=== PATIENT | female | born 1965 | race Caucasian/White ===

== ENCOUNTER 2016-04-13 03:17 | Emergency (ER) | payer SELFPAY ==
[2016-04-13] MEDS ORDERED: ONDANSETRON 4 MG TAB.RAPDIS PO ONE (07:30)
[2016-04-13] MEDS ORDERED: PROCHLORPERAZINE MALEATE 5 MG TABLET PO ONE (07:30)
[2016-04-13] MEDS ORDERED: PROMETHAZINE HCL 25 MG TABLET PO ONE (07:51)
[2016-04-13] MEDS ORDERED: LIDOCAINE 5% (700 MG) TRANSDERMAL ADH..PATCH TP ONE (07:54)
--- NOTE | 2016-04-13 08:16 | ER Document Report ---
ED General - General Chief Complaint: Fall Stated Complaint: FALL,HEAD INJURY TRAVEL OUTSIDE OF THE [place] IN LAST 30 DAYS: No - HPI Patient complains to provider of: fall Notes: Patient was drinking last night states that she was trying put on her shoes and she had a fall hitting her head complaining of head pain and neck pain. Upon my evaluation patient sleeping with her significant other in the same stretcher with her. Patient states fell backwards no loss of consciousness but complains of head pain and neck pain.. Patient is acutely intoxicated. Patient is sitting in a c-collar. Otherwise has no other complaints. - Related Data Allergies/Adverse Reactions: Penicillins Allergy (Verified 12/08/15 13:58) Past Medical History - Social History Smoking Status: Unknown if Ever Smoked Family History: Reviewed & Not Pertinent Past Surgical History: Reports: Hx Hysterectomy Review of Systems - Review of Systems Constitutional: Other - Head pain and neck pain EENT: No symptoms reported Cardiovascular: No symptoms reported Respiratory: No symptoms reported Gastrointestinal: No symptoms reported Genitourinary: No symptoms reported Female Genitourinary: No symptoms reported Musculoskeletal: No symptoms reported Skin: No symptoms reported Hematologic/Lymphatic: No symptoms reported Neurological/Psychological: No symptoms reported -: Yes All other systems reviewed and negative Physical Exam - Vital signs Interpretation: Normal - General General appearance: Appears well, Alert - HEENT Head: Normocephalic, Atraumatic Eyes: Normal Conjunctiva: Normal Cornea: Normal Extraocular movements intact: Yes Pupils: PERRL Neck: Other - C-spine precautions c-collar in place - Respiratory Respiratory status: No respiratory distress Chest status: Nontender Breath sounds: Normal Chest palpation: Normal - Cardiovascular Rhythm: Regular Heart sounds: Normal auscultation Murmur: No - Abdominal Inspection: Normal Distension: No distension Bowel sounds: Normal Tenderness: Nontender Organomegaly: No organomegaly - Back Back: Normal, Nontender - Extremities General upper extremity: Normal inspection, Nontender, Normal color, Normal ROM , Normal temperature General lower extremity: Normal inspection, Nontender, Normal color, Normal ROM , Normal temperature, Normal weight bearing. No: Julita's sign - Neurological Neuro grossly intact: Yes Cognition: Normal Orientation: AAOx4 [place] Coma Scale Eye Opening: Spontaneous Graham Coma Scale Verbal: Oriented Graham Coma Scale Motor: Obeys Commands Graham Coma Scale Total: 15 Speech: Normal Motor strength normal: LUE, RUE, LLE, RLE Sensory: Normal - Psychological Associated symptoms: Normal affect, Normal mood - Skin Skin Temperature: Warm Skin Moisture: Dry Skin Color: Normal Course - Re-evaluation Re-evalutation: 04/13/16 08:41 CT scans were performed These were negative. Patient will be discharged home Discharge - Discharge Clinical Impression: Neck pain Head pain Qualifiers: Headache type: unspecified Headache chronicity pattern: unspecified pattern Intractability: not intractable Qualified Code(s): R51 - Headache Condition: Good Disposition: HOME, SELF-CARE Instructions: Headache ([facility]), Neck Injury (Cervical Strain) ([facility]) Additional Instructions: Follow-up with your primary care physician. Take medications as prescribed. Prescriptions: Lidocaine [Lidoderm 5% (700 mg) Transdermal Patch] 1 patch TP DAILY #30 adh..patch Prochlorperazine Maleate [Compazine] 5 mg PO Q6 #20 tablet Forms: Return to Work
[2016-04-13 08:41] VITALS: BP 118/69
== END 2016-04-13 08:35 | disposition home or self-care (01) ==
LOC: ER 03:17
DX: R51 Headache (principal); M54.2 Cervicalgia; F10.129 Alcohol abuse with intoxication, unspecified; W19.XXXA Unspecified fall, initial encounter
CPT/HCPCS: 99284; 70450; 72125; S0119